=== PATIENT | male | born 1985 | race Caucasian/White ===

== ENCOUNTER 2017-06-02 07:10 | Emergency (ER) | payer SELFPAY ==
[~2017-06-02] VITALS: Ht 170.2 cm; Wt 108.5 kg
[2017-06-02 07:14] VITALS: TEMP 36.7; Ht 170.2 cm; Wt 108.5 kg
[2017-06-02 07:40] VITALS: O2SAT 97
[2017-06-02] MEDS ORDERED: CETI10TA84 PO (07:57)
[2017-06-02 08:03] LABS: BASO % 0.3 %; BASO ABS # 0.02 K/uL (0-0.2); EOS % 1.5 %; EOS ABS # 0.11 K/uL (0-0.5); HEMATOCRIT 45.3 % (42-52); HEMOGLOBIN 15.7 g/dL (14.0-18.0); IG# 0.01 K/uL (0.00-0.02); LYMPH % 27.5 %; LYMPH ABS # 1.97 K/uL (1.2-3.4); MEAN CELL VOLUME 82.5 fL (80-100); MEAN CORPUSCULAR HEMOGLOBIN 28.6 pg (25-34); MEAN CORPUSCULAR HGB CONC 34.7 g/dl (32-36); MEAN PLATELET VOLUME 10.6 fL (7.4-10.4); MONO ABS # 0.43 K/uL (0.11-0.59); NEUT % 64.6 %; NEUT ABS # 4.62 K/uL (1.4-6.5); PLATELET COUNT 234 K/uL (130-400); RED CELL DISTRIBUTION WIDTH CV 12.6 % (11.5-14.5); RED CELL DISTRIBUTION WIDTH SD 37.9 fL (36.4-46.3); WHITE BLOOD COUNT 7.16 K/uL (4.8-10.8)
[2017-06-02 08:10] LABS: ALBUMIN 3.8 gm/dl (3.4-5.0); ALT/SGPT 59 U/L (12-78); BLOOD UREA NITROGEN 14 mg/dl (7-18); CALCIUM 8.5 mg/dl (8.5-10.1); CARBON DIOXIDE 26 mmol/L (21-32); CREATININE 0.94 mg/dl (0.60-1.40); GLUCOSE 100 mg/dl (70-99); POTASSIUM 3.8 mmol/L (3.5-5.1); SODIUM 136 mmol/L (136-145)
[2017-06-02 08:15] LABS: ALKALINE PHOSPHATASE 82 U/L (45-117); AST/SGOT 31 U/L (15-37); TOTAL PROTEIN 7.5 gm/dl (6.4-8.2)
--- NOTE | 2017-06-02 08:20 | EMERGENCY ROOM VISIT NOTE ---
History First contact with patient: 07:31 Chief Complaint: CHEST PAIN Stated Complaint: CHEST PAIN,SOB Nursing Triage Summary: all week short of breath. Today started with chest pain. History of Present Illness The patient is a 32 year old male who presents to the Emergency Room with complaints of chest pain. The patient states that he has been slightly short of breath for the past 1 week. 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 He states that it typically takes him about 20 minutes to catch his breath. He states that for the past 4-5 hours, he has had a tight sensation in the middle of his chest with radiation into the throat. He states it is a burning sensation and feels somewhat like heartburn. He rates the discomfort a 3/10. The pain has been constant. He denies any aggravating or alleviating factors. He does report some palpitations when he sits up or stands up. He states he had some similar symptoms one year ago and had a negative workup and was told he had a panic attack. He does state that he has some anxiety at baseline. He denies any history of cardiac disease or family history of cardiac disease. He smokes 1-2 cigarettes daily. He recently drove here from [place] and spent 6 hours in the car. He denies leg pain or swelling. Review of Systems A complete 10 point review of systems was reviewed with the patient with pertinent positives and negatives as per history of present illness. All else were negative. Past Medical/Surgical History Medical Problems: (1) IBS (irritable bowel syndrome) Surgical Problems: (1) History of tonsillectomy Social History Smoking Status: Current Some Day Smoker Alcohol Use: occasionally Housing Status: lives with family Occupation Status: employed Current/Historical Medications Scheduled Cetirizine (Zyrtec), 10 MG PO DAILY Physical Exam Vital Signs Date Time Temp Pulse Resp B/P (MAP) Pulse Ox O2 Delivery O2 Flow Rate FiO2 06/02/17 10:00 64 116/87 97 Room Air 06/02/17 09:32 72 18 127/70 98 Room Air 06/02/17 08:37 06/02/17 08:35 78 18 140/83 98 Room Air 79 142/95 74 162/87 06/02/17 07:44 86 3/30/18 07:40 89 16 127/99 97 06/02/17 07:40 97 Room Air 06/02/17 07:36 98 Room Air 06/02/17 07:14 36.7 98 20 164/94 96 Room Air Physical Exam VITALS: Vitals are noted on the nurse's note and reviewed by myself. Vital signs stable. GENERAL: This is a 32-year-old male, in no acute distress, nondiaphoretic, well- developed well-nourished. SKIN: The skin was without rashes. EARS: External auditory canals clear, tympanic membranes pearly matta without erythema or effusion bilaterally. EYES: Pupils equal round and reactive to light and accommodation. Extraocular movements intact. NOSE: Patent, turbinates without inflammation or discharge. MOUTH: Mucous membranes moist. Tonsils are not enlarged. Pharynx without erythema or exudate. NECK: Supple without nuchal rigidity. No lymphadenopathy. HEART: Regular rate and rhythm without murmurs gallops or rubs. LUNGS: Clear to auscultation bilaterally without wheezes, rales or rhonchi. No retractions or accessory muscle use. ABDOMEN: Soft, nontender. MUSCULOSKELETAL: No reproducible tenderness to palpation of the chest wall. NEURO: Patient was alert and oriented to person place and time. Medical Decision & Procedures ER Provider Diagnostic Interpretation: CHEST ONE VIEW PORTABLE CLINICAL HISTORY: Chest pain. Shortness of breath. COMPARISON STUDY: No previous studies for comparison. FINDINGS: There is mild elevation of the right hemidiaphragm. There is no consolidation or evidence for pulmonary edema. Cardiac size is normal. Mediastinal contours are normal. Lung volumes are at the lower limits of normal. IMPRESSION: 1. No acute cardiopulmonary findings. 2. Mild elevation of the right hemidiaphragm. Laboratory Results 06/02/17 07:35 Red Blood Count 5.49, Mean Corpuscular Volume 82.5, Mean Corpuscular Hemoglobin 28.6, Mean Corpuscular Hemoglobin Concent 34.7, Mean Platelet Volume 10.6, Neutrophils (%) (Auto) 64.6, Lymphocytes (%) (Auto) 27.5, Monocytes (%) (Auto) 6.0, Eosinophils (%) (Auto) 1.5, Basophils (%) (Auto) 0.3, Neutrophils # (Auto) 4.62, Lymphocytes # (Auto) 1.97, Monocytes # (Auto) 0.43, Eosinophils # (Auto) 0.11, Basophils # (Auto) 0.02 06/02/17 07:35 Test 06/02/17 07:35 06/02/17 09:00 White Blood Count 7.16 K/uL (4.8-10.8) Red Blood Count 5.49 M/uL (4.7-6.1) Hemoglobin 15.7 g/dL (14.0-18.0) Hematocrit 45.3 % (42-52) Mean Corpuscular Volume 82.5 fL (80-100) Mean Corpuscular Hemoglobin 28.6 pg (25-34) Mean Corpuscular Hemoglobin Concent 34.7 g/dl (32-36) Platelet Count 234 K/uL (130-400) Mean Platelet Volume 10.6 fL (7.4-10.4) Neutrophils (%) (Auto) 64.6 % Lymphocytes (%) (Auto) 27.5 % Monocytes (%) (Auto) 6.0 % Eosinophils (%) (Auto) 1.5 % Basophils (%) (Auto) 0.3 % Neutrophils # (Auto) 4.62 K/uL (1.4-6.5) Lymphocytes # (Auto) 1.97 K/uL (1.2-3.4) Monocytes # (Auto) 0.43 K/uL (0.11-0.59) Eosinophils # (Auto) 0.11 K/uL (0-0.5) Basophils # (Auto) 0.02 K/uL (0-0.2) RDW Standard Deviation 37.9 fL (36.4-46.3) RDW Coefficient of Variation 12.6 % (11.5-14.5) Immature Granulocyte % (Auto) 0.1 % Immature Granulocyte # (Auto) 0.01 K/uL (0.00-0.02) D-Dimer 220 ug/L FEU (0-500) Anion Gap 5.0 mmol/L (3-11) Est Creatinine Clear Calc Drug Dose 133.8 ml/min Estimated GFR () 124.7 Estimated GFR (Non- 107.6 BUN/Creatinine Ratio 14.7 (10-20) Calcium Level 8.5 mg/dl (8.5-10.1) Total Bilirubin 0.4 mg/dl (0.2-1) Aspartate Amino Transf (AST/SGOT) 31 U/L (15-37) Alanine Aminotransferase (ALT/SGPT) 59 U/L (12-78) Alkaline Phosphatase 82 U/L (45-117) Total Protein 7.5 gm/dl (6.4-8.2) Albumin 3.8 gm/dl (3.4-5.0) Globulin 3.7 gm/dl (2.5-4.0) Albumin/Globulin Ratio 1.0 (0.9-2) Troponin I < 0.015 ng/ml (0-0.045) Medications Administered Medications (Trade) Dose Ordered Sig/Chau Route Start Time Stop Time Status Last Admin Dose Admin Albuterol (Ventolin Hfa Inhaler) 2 puffs NOW ONCE INH 06/02/17 09:45 06/02/17 09:46 DC 06/02/17 09:45 2 PUFFS ECG Per My Interpretation Indication: chest pain Rate (beats per minute): 90 Rhythm: normal sinus Findings: no acute ischemic change, no ectopy Comparison ECG Date: no prior available Medical Decision Differential diagnosis includes acute coronary syndrome, pulmonary embolism, pneumothorax, pericarditis, myocarditis, endocarditis, anxiety, musculoskeletal pain, GERD, costochondritis, pneumonia, among others. The patient is a 32-year-old male who presents today complaining of chest pain. Labs revealed no leukocytosis, anemia or concerning electrolyte abnormalities. Troponin 2 negative. D-dimer negative. EKG was interpreted by myself and shows a normal sinus rhythm without ischemia or ectopy. Chest x- ray unremarkable. Orthostatic vital signs negative. I had a lengthy discussion with the patient regarding his symptoms. There are multiple possible etiologies. He may have a component of anxiety. Patient does feel he may have asthma/seasonal allergies. He was given a Ventolin inhaler to try for his symptoms. I discussed the importance of follow-up with a primary care provider for further evaluation. The patient's case was reviewed with Dr. Cordero, ED attending physician, who agreed with my assessment and treatment plan. Based on the patient's presentation and work up, I feel the patient is stable for outpatient treatment. The patient was educated to return to the emergency department for any worsening of their current condition or new/concerning symptoms. He will follow up with his PCP. Medication Reconcilliation Current Medication List: was personally reviewed by me Blood Pressure Screening Patient's blood pressure: Normal blood pressure Impression Primary Impression: Substernal precordial chest pain Departure Information Dispostion Home / Self-Care Condition GOOD Referrals No Doctor, Assigned (PCP) Patient Instructions My [facility] Additional Instructions You have been treated in the Emergency Department for your Chest Pain. Laboratory results and Imaging Studies have ruled out any cardiac or pulmonary cause of your chest pain. For pain control, you can use the following ptux-mox-fozoivx medicines (if >12 yo): - Regular strength (325mg/tab) Tylenol (acetaminophen) 2 tabs every 4-6 hours as needed. Do not exceed 12 tablets in a 24 hour period. Avoid taking more than 4 grams (4000 mg) of Tylenol per day. This includes any other sources of acetaminophen you may take on a regular basis. - Regular strength (200 mg/tab) Advil (ibuprofen) 1-2 tabs every 4-6 hours as needed. Do not exceed a dose of 3200 mg per day. Continue to take the Zyrtec daily. Use the Ventolin inhaler and spacer as needed for shortness of breath. You should schedule a follow-up appointment with your Primary Care Provider in 2 -3 days for further evaluation from today's Emergency Department visit. Return to the Emergency Department if your current symptoms worsen despite treatment course outlined above, or if you develop any of the following symptoms : worsening chest pain, associated jaw/arm pain, nausea, dizziness, shortness of breath, bloody cough, or fainting.
[2017-06-02] MEDS ORDERED: ALBUTEROL HFA 8 GM INHALER INH ONE (09:45)
[2017-06-02 10:00] VITALS: BP 116/87; PULSE 64; O2SAT 97
== END 2017-06-02 10:21 | disposition home or self-care (01) ==
LOC: C.EDB 07:12
DX: R07.2 Precordial pain (principal); R06.02 Shortness of breath; R00.2 Palpitations; K58.9 Irritable bowel syndrome, unspecified; Z79.899 Other long term (current) drug therapy; F17.200 Nicotine dependence, unspecified, uncomplicated